=== PATIENT | male | born 1990 | race Caucasian/White ===

== ENCOUNTER → 2019-02-14 | Emergency (ER) | payer BC ==
[~2019-02-14] VITALS: Ht 180.3 cm; Wt 77.1 kg
[~2019-02-14] MED LIST: IBU800 MG PO; ZOFRAN4 MG PO
== END ==
LOC: ED 08:39
DX: S09.90XA Unspecified injury of head, initial encounter (principal); W17.89XA Other fall from one level to another, initial encounter
CPT/HCPCS: 70450; 99284-25